=== PATIENT | female | born 1995 | race African-American/Black ===

== ENCOUNTER 2018-04-17 01:17 | Emergency (ER) | payer OTHER ==
[~2018-04-17] VITALS: Ht 165.1 cm; Wt 78.5 kg
[2018-04-17 00:45] VITALS: BP 100/50
[~2018-04-17 01:17] MED LIST: PREN-380 PO
[2018-04-17 01:49] VITALS: BP 100/50
== END 2018-04-17 01:49 | disposition home or self-care (01) ==
LOC: EDSTATUS 01:17 → MED 01:17
DX: O9A.212 Injury, poisoning and certain other consequences of external causes complicating pregnancy, second trimester (principal); S39.011A Strain of muscle, fascia and tendon of abdomen, initial encounter; Z3A.24 24 weeks gestation of pregnancy; X58.XXXA Exposure to other specified factors, initial encounter; Y93.89 Activity, other specified; Y92.89 Other specified places as the place of occurrence of the external cause; Y99.8 Other external cause status
CPT/HCPCS: 99282

== ENCOUNTER 2019-08-28 12:59 | Emergency (ER) | payer MEDICAID, OTHER ==
[~2019-08-28] VITALS: Ht 167.6 cm; Wt 81.6 kg
[2019-08-28 13:21] VITALS: BP 117/74
--- NOTE | 2019-08-28 13:22 | NUR ---
SEEN IN TRIAGE BY PA
[2019-08-28 14:13] VITALS: BP 117/74
--- NOTE | 2019-08-28 14:13 | NUR ---
Patient discharged with v/s stable. Written and verbal after care instructions given and explained. Patient alert, oriented and verbalized understanding of instructions. Ambulatory with steady gait. All questions addressed prior to discharge. ID band removed. Patient advised to follow up with PMD. Rx of TYLENOL/ IBUPROFEN/ALBUTEROL given. Patient educated on indication of medication including possible reaction and side effects. Opportunity to ask questions provided and answered.
== END 2019-08-28 14:13 | disposition home or self-care (01) ==
LOC: MED 12:59
DX: J06.9 Acute upper respiratory infection, unspecified (principal); J45.909 Unspecified asthma, uncomplicated; Z79.899 Other long term (current) drug therapy
CPT/HCPCS: 99282